=== PATIENT | female | born 1960 | race Caucasian/White ===

== ENCOUNTER 2019-07-03 11:35 | Emergency (ER) | payer BC, OTHER ==
[2019-07-03 11:46] VITALS: BP 182/109; PULSE 90; TEMP 98; BMI 34.0
[2019-07-03] MEDS ORDERED: FAMOTIDINE 20 MG/50 ML IVPB 20 MG/50 ML MG IVPB ONE ×2 (14:37→15:32)
[2019-07-03] MEDS ORDERED: SODIUM CHLORIDE 1,000 ML IV STA (14:37)
[2019-07-03] MEDS ORDERED: ONDANSETRON 4 MG/2 ML VIAL IVPUSH ONE (14:38)
[2019-07-03] MEDS ORDERED: MAG HYDROX/AL HYDROX/SIMETH 30 ML UNIT-DOSE CUP PO ONE (14:38)
[2019-07-03] MEDS ORDERED: ONDANSETRON 4 MG/2 ML VIAL ONE (15:32)
[2019-07-03] MEDS ORDERED: MAG HYDROX/AL HYDROX/SIMETH 30 ML UNIT-DOSE CUP ONE (15:32)
[2019-07-03 15:56] LABS: BASO % 0.9 % (0-2.0); EOS % 1.5 % (0-4.5); HEMATOCRIT 48.1 % (32.4-45.2); HEMOGLOBIN 15.9 GM/dL (10.7-15.3); LYMPH % 34.1 % (8-40); MCH 28.9 pg (25.7-33.7); MCHC 33.1 g/dl (32.0-36.0); MEAN CELL VOLUME 87.5 fl (80-96); MEAN PLT VOLUME 9.9 fl (7.5-11.1); MONO % 7.8 % (3.8-10.2); NEUT % 55.7 % (42.8-82.8); PLATELET COUNT 235 K/MM3 (134-434); WHITE BLOOD COUNT 7.5 K/mm3 (4.0-10.0)
[2019-07-03 16:17] LABS: ALBUMIN 3.7 g/dl (3.4-5.0); BILIRUBIN,TOTAL 0.6 mg/dL (0.2-1); BLOOD UREA NITROGEN 14.7 mg/dL (7-18); CALCIUM 9.4 mg/dL (8.5-10.1); POTASSIUM 4.5 mmol/L (3.5-5.1); TOT PROT 8.2 g/dl (6.4-8.2)
[2019-07-03 17:41] LABS: EPI CELLS 14.9 /HPF (0-5/HPF); HYALINE CASTS 12 /lpf (0-8); PH,URINE 6.5 (5.0-8.0); URINE APPEARANCE CLOUDY; URINE BILIRUBIN NEGATIVE (NEGATIVE); URINE COLOR YELLOW; URINE GLUCOSE (UA) NEGATIVE (NEGATIVE); URINE KETONE NEGATIVE (NEGATIVE); URINE LEUK ESTERASE TRACE (NEGATIVE); URINE NITRITE NEGATIVE (NEGATIVE); URINE PROTEIN NEGATIVE (NEGATIVE); URINE RBC 14 /hpf (0-4); URINE WBC 11 /hpf (0-5)
--- NOTE | 2019-07-03 17:41 | PDOC ---
History of Present Illness - General History Source: Patient Exam Limitations: No Limitations - History of Present Illness Initial Comments: 07/03/19 Patient is a 58-year-old female who presents to the ED with complaint of epigastric abdominal pain that started over the last several days. She had pain similar to this in April and then it resolved. The patient was taking omeprazole and Zantac which did help her. She denies any diarrhea but had several episodes of vomiting. She denies any fevers or chills. The patient has a history of high blood pressure and high cholesterol. She took her blood pressure medication this morning but vomited it back up. She denies any allergies to medications. She does not recall eating anything that could have made her sick. <Ana Linares - Last Filed: 07/03/19 17:45> <Jean Pierre Alonzo - Last Filed: 07/06/19 17:25> - General Chief Complaint: Pain Stated Complaint: ABD. PAIN/ VOMITING Time Seen by Provider: 07/03/19 13:54 Past History - Past Medical History COPD: No HTN: Yes - Psycho Social/Smoking Cessation Hx Smoking History: Current every day smoker Number of Cigarettes Smoked Daily: 5 Information on smoking cessation initiated: No <Ana Linares - Last Filed: 07/03/19 17:45> <Jean Pierre Alonzo - Last Filed: 07/06/19 17:25> - Past Medical History Allergies/Adverse Reactions: Allergies Allergy/AdvReac Type Severity Reaction Status Date / Time No Known Allergies Allergy Verified 07/05/19 18:02 Home Medications: Ambulatory Orders Atorvastatin Ca [Lipitor] 20 mg PO HS 07/05/19 Ergocalciferol (Vitamin D2) [Drisdol] 1,250 mcg PO DAILY 07/05/19 Famotidine [Pepcid] 40 mg PO DAILY 07/05/19 Losartan Potassium 50 mg PO DAILY 07/05/19 Omeprazole 20 mg PO DAILY 07/05/19 Review of Systems - Review of Systems Comments:: 07/03/19 17:38 - Review of Systems Able to Perform ROS?: Yes Constitutional: No: Fever, Chills, Loss of Appetite, Night Sweats, Weakness HEENTM: No: Eye Pain, Vision changes, Ear Pain, Throat Pain, Throat Swelling, Mouth Pain, Difficulty Swallowing Respiratory: No: Cough, Shortness of Breath, Wheezing, Sputum Production Cardiac (ROS): No: Chest Pain, Chest Tightness, Palpitations, Irregular Heart Beat, Edema ABD/GI: No: Diarrhea; Positive: Nausea, Vomiting, Abdominal Pain : No Dysuria, No Hematuria, No Frequency, No Urgency Musculoskeletal: No: Muscle Pain, Back Pain, Joint Pain, Muscle Weakness, Neck Pain Integumentary: No: Lesions, Rash Neurological: No: Headache, Numbness, Tingling, Weakness, Speech Difficulties <Aiayna,Ana D - Last Filed: 07/03/19 17:45> *Physical Exam - Vital Signs Last Vital Signs Temp Pulse Resp BP Pulse Ox 98 F 90 18 182/109 H 98 07/03/19 11:43 07/03/19 11:43 07/03/19 11:43 07/03/19 11:43 07/03/19 11:43 - Physical Exam 07/03/19 17:38 - Physical Exam General Appearance: Nourished, Appropriately Dressed, No Distress HEENT: EOMI, Normal Voice, No Muffled/Hoarse voice, No Nasal Congestion, No Rhinorrhea, Hearing Grossly Normal Neck: Supple, No Lymphadenopathy (R), No Lymphadenopathy (L), No Rigidity, No Decreased range of motion Respiratory/Chest: Lungs Clear, Normal Breath Sounds. No Respiratory Distress, No Accessory Muscle Use Cardiovascular: Regular Rhythm, Regular Rate, S1, S2 Gastrointestinal/Abdominal: Normal Bowel Sounds, Soft. No Guarding, No Rebound , No Rigidity; Epigastric abdominal tenderness to palpation. No right upper quadrant abdominal tenderness. No Vázquez sign. Musculoskeletal: Normal Inspection. No Decreased Range of Motion Extremity: Normal Capillary Refill, Normal Inspection Integumentary: Normal Color, Dry. No Rash Neurologic: seating captain II-XII NML intact, Fully Oriented, Alert, Normal Mood/Affect, Normal Response <Aiyana,Ana D - Last Filed: 07/03/19 17:45> - Vital Signs Last Vital Signs Temp Pulse Resp BP Pulse Ox 98 F 90 18 182/109 H 98 07/03/19 11:43 07/03/19 11:43 07/03/19 11:43 07/03/19 11:43 07/03/19 11:43 <Jean Pierre Alonzo - Last Filed: 07/06/19 17:25> ED Treatment Course - LABORATORY CBC & Chemistry Diagram: 07/03/19 15:29 07/03/19 15:29 - ADDITIONAL ORDERS Additional order review: Laboratory Results 07/03/19 07/03/19 15:29 15:29 Sodium 138 Potassium 4.5 Chloride 104 Carbon Dioxide 31 Anion Gap 4 L BUN 14.7 Creatinine 1.0 Est GFR (CKD-EPI)AfAm 72.93 Est GFR (CKD-EPI)NonAf 62.93 Random Glucose 99 Calcium 9.4 Total Bilirubin 0.6 AST 31 ALT 41 Alkaline Phosphatase 91 Total Protein 8.2 Albumin 3.7 Lipase 125 07/03/19 15:29 RBC 5.50 H MCV 87.5 MCHC 33.1 RDW 15.0 MPV 9.9 Neutrophils % 55.7 Lymphocytes % 34.1 Monocytes % 7.8 Eosinophils % 1.5 Basophils % 0.9 - Medications Given in the ED: ED Medications Discontinued Medications Generic Name Dose Route Start Last Admin Trade Name Freq PRN Reason Stop Dose Admin Al Hydroxide/Mg Hydroxide 30 ml 07/03/19 14:38 07/03/19 15:39 Mylanta Oral Suspension - PO 07/03/19 14:39 30 ml ONCE ONE Administration Famotidine/Sodium Chloride 20 mg in 50 mls @ 100 mls/hr 07/03/19 14:37 15:39 Pepcid 20 Mg Premixed Ivpb - IVPB 07/03/19 15:06 100 mls/hr ONCE ONE Administration Sodium Chloride 1,000 mls @ 1,000 mls/hr 07/03/19 14:37 07/03/19 15:39 Normal Saline - IV 07/03/19 15:36 1,000 mls/hr ASDIR STA Administration Ondansetron HCl 4 mg 07/03/19 14:38 07/03/19 15:39 Zofran Injection IVPUSH 07/03/19 14:39 4 mg ONCE ONE Administration <nAa Linares D - Last Filed: 07/03/19 17:45> - LABORATORY CBC & Chemistry Diagram: 07/03/19 15:29 07/03/19 15:29 - ADDITIONAL ORDERS Additional order review: 07/03/19 16:30 Urine Culture - Final Urine - Urine Clean Catch Normal Urogenital Isabell 07/03/19 15:29 RBC 5.50 H MCV 87.5 MCHC 33.1 RDW 15.0 MPV 9.9 Neutrophils % 55.7 Lymphocytes % 34.1 Monocytes % 7.8 Eosinophils % 1.5 Basophils % 0.9 - Medications Given in the ED: ED Medications Discontinued Medications Generic Name Dose Route Start Last Admin Trade Name Donaldq PRN Reason Stop Dose Admin Al Hydroxide/Mg Hydroxide 30 ml 07/03/19 14:38 07/03/19 15:39 Mylanta Oral Suspension - PO 07/03/19 14:39 30 ml ONCE ONE Administration Famotidine/Sodium Chloride 20 mg in 50 mls @ 100 mls/hr 07/03/19 14:37 15:39 Pepcid 20 Mg Premixed Ivpb - IVPB 07/03/19 15:06 100 mls/hr ONCE ONE Administration Sodium Chloride 1,000 mls @ 1,000 mls/hr 07/03/19 14:37 07/03/19 15:39 Normal Saline - IV 07/03/19 15:36 1,000 mls/hr ASDIR STA Administration Ondansetron HCl 4 mg 07/03/19 14:38 07/03/19 15:39 Zofran Injection IVPUSH 07/03/19 14:39 4 mg ONCE ONE Administration <Jean Pierre Alonzo - Last Filed: 07/06/19 17:25> Medical Decision Making - Medical Decision Making 07/03/19 16:15 Assessment: Patient is a 58-year-old female with epigastric abdominal pain and vomiting. She has a history of hypertension with elevated blood pressures in the ED. She did vomit her hypertensive medications. Plan: -Labs ordered -Fluids ordered -GI cocktail ordered -Will reassess 07/03/19 17:46 The patient is doing well and states she feels hungry. She has been made aware that her labs are within normal limits. She has a urine infection which we will treat with keflex. She should follow up with her primary doctor within 2 days for repeat evaluation. She understands and agrees with this treatment plan and she is stable for discharge. <Ana Linares - Last Filed: 07/03/19 17:45> - Medical Decision Making The patient was seen and evaluated in conjunction with KLAUDIA linares under my direct supervision, ancillary studies were reviewed. I agree with the plan as outlined by KLAUDIA Steele. <Jean Pierre Alonzo - Last Filed: 07/06/19 17:25> Discharge - Discharge Information Problems reviewed: Yes <Ana Linares - Last Filed: 07/03/19 17:45> <Jean Pierre Alonzo - Last Filed: 07/06/19 17:25> - Discharge Information Clinical Impression/Diagnosis: Epigastric abdominal pain, Acute cystitis without hematuria Disposition: HOME - Patient Discharge Instructions Patient Printed Discharge Instructions: [place] Diet, DI for Urinary Tract Infection (UTI), DI for Abdominal Pain-Adult Additional Instructions: Get plenty of rest and drink plenty of fluids. Eat a bland diet and avoid fried , greasy, fatty, acidic foods. Follow-up with your primary doctor within 1 to 2 days for repeat evaluation. Print Language: UPPER SORBIAN
[2019-07-03] MEDS ORDERED: CEPHALEXIN MONOHYDRATE 500 MG CAPSULE (UD) PO ONE (17:53)
[2019-07-03] MEDS ORDERED: CEPHALEXIN MONOHYDRATE 500 MG CAPSULE (UD) ONE (17:55)
== END 2019-07-03 18:13 | disposition home or self-care (01) ==
LOC: JER 11:35
PROC: 3E033GC Introduction of Other Therapeutic Substance into Peripheral Vein, Percutaneous Approach (ICD-10-PCS; principal; 2019-07-03)
PROC: 3E033GC Introduction of Other Therapeutic Substance into Peripheral Vein, Percutaneous Approach (ICD-10-PCS; 2019-07-03)
DX: N30.00 Acute cystitis without hematuria (principal); R10.13 Epigastric pain; I10 Essential (primary) hypertension; E78.00 Pure hypercholesterolemia, unspecified
CPT/HCPCS: 36415; 80053; 81003; 83690; 85025; 87086; 99284-25; J7030

== ENCOUNTER 2019-07-05 17:54 | Emergency (ER) | payer BC ==
[2019-07-05 18:02] VITALS: BP 161/99; TEMP 98.5; BMI 28.8
[2019-07-05] MEDS ORDERED: ONDANSETRON 4 MG/2 ML VIAL IVPUSH ONE (18:39)
[2019-07-05] MEDS ORDERED: SODIUM CHLORIDE 1,000 ML IV STA (18:39)
[2019-07-05] MEDS ORDERED: FAMOTIDINE 20 MG/50 ML IVPB 20 MG/50 ML MG IVPB ONE ×2 (18:39→18:51)
--- NOTE | 2019-07-05 18:49 | PDOC ---
History of Present Illness - General Chief Complaint: Pain Stated Complaint: ABD PAIN/VOMITING Time Seen by Provider: 07/05/19 18:23 History Source: Patient Exam Limitations: No Limitations Past History - Past Medical History Allergies/Adverse Reactions: Allergies Allergy/AdvReac Type Severity Reaction Status Date / Time No Known Allergies Allergy Verified 07/05/19 18:02 Home Medications: Ambulatory Orders Atorvastatin Ca [Lipitor] 20 mg PO HS 07/05/19 Ergocalciferol (Vitamin D2) [Drisdol] 1,250 mcg PO DAILY 07/05/19 Famotidine [Pepcid] 40 mg PO DAILY 07/05/19 Losartan Potassium 50 mg PO DAILY 07/05/19 Omeprazole 20 mg PO DAILY 07/05/19 COPD: No HTN: Yes - Psycho Social/Smoking Cessation Hx Smoking History: Never smoked Number of Cigarettes Smoked Daily: 5 Information on smoking cessation initiated: No Hx Alcohol Use: No Drug/Substance Use Hx: No *Physical Exam - Vital Signs Last Vital Signs Temp Pulse Resp BP Pulse Ox 98.5 F 90 19 161/99 99 07/05/19 18:00 07/05/19 18:00 07/05/19 18:00 07/05/19 18:00 07/05/19 18:00 - Physical Exam General Appearance: No: Apparent Distress Respiratory/Chest: positive: Lungs Clear, Normal Breath Sounds. negative: Respiratory Distress Cardiovascular: positive: Regular Rhythm, Regular Rate, S1, S2. negative: Murmur Gastrointestinal/Abdominal: positive: Tender (mild along epigastric region), Soft. negative: Distended, Guarding Musculoskeletal: negative: CVA Tenderness Neurologic: positive: Alert ED Treatment Course - LABORATORY CBC & Chemistry Diagram: 07/05/19 19:00 07/05/19 19:00 - RADIOLOGY Radiology Studies Ordered: Category Date Time Status ABDOMEN & PELVIS CT WITH CONTR [CT] Stat CT Scan 07/05/19 18:40 Ordered Medical Decision Making - Medical Decision Making 58 y/o F hx of HTN presents with epigastric burning x 4 days along with NBNB emesis. Was seen 2 days ago for similar complaints, had unremarkable labs, dx with UTI and sent with rx for Keflex. Epigastric pain is worse with food intake. Is using Maalox at home without relief of sxs. Also tried Zofran but has not helped with nausea. States she was feeling better 2 days ago after meds received and was fine yesterday as well but symptoms returned today. Has had this problem in the past as well and was seen in [place]; was on Omeprazole in the past, but it did not help. Denies fever, sob, cp, diarrhea, urinary complaints. Surgical hx: L oopherectomy 13 years ago, Likely gastritis Patient is visiting from [place] and goes back in 4 days; is pending to see GI there D/W Dr. Wilkes - recommends repeat labs; also flat and upright abdominal xray to r/o SBO (suspicion low) Will give IVF, Zofran, Pepcid and reassess 07/05/19 18:48 Labs reviewed and unremarkable other than K 5.4 Kidney function is normal EKG shows NSR at 61 bpm, no peaked T waves Flat and upright xray shows no air fluid levels; some stool noted Patient feeling much better Stable for dc Will f/u with GI 07/05/19 20:50 Discharge - Discharge Information Problems reviewed: Yes Clinical Impression/Diagnosis: Gastritis Qualifiers: Gastritis type: unspecified gastritis Chronicity: unspecified Gastritis bleeding: without bleeding Qualified Code(s): K29.70 - Gastritis, unspecified, without bleeding Condition: Improved Disposition: HOME - Admission No - Additional Discharge Information Prescription Drug Monitoring Program (I-STOP) results: I-STOP not reviewed - Follow up/Referral - Patient Discharge Instructions Patient Printed Discharge Instructions: DI for Gastritis Additional Instructions: Thank you for choosing [facility]. It was a pleasure taking care of you. Recommend taking Pepcid 20 mg daily for your symptoms Please be sure to follow-up with GI for further care You were referred to one Return to the Emergency Department if your symptoms worsen or persist or have other concerning symptoms. Stephanie por elegir el [facility]. Fue un placer cuidar de ti. Recomiende orsa Pepcid 20 mg al da para stephanie sntomas Asegrese de hacer un seguimiento con GI para recibir ms atencin. Te remitieron a massiel Regrese al departamento de emergencias si stephanie sntomas empeoran o persisten o si tiene otros sntomas preocupantes. Print Language: SOUTH AFRICAN - Post Discharge Activity
[2019-07-05] MEDS ORDERED: ONDANSETRON 4 MG/2 ML VIAL ONE (18:50)
[2019-07-05 19:44] LABS: BASO % 0.9 % (0-2.0); EOS % 1.4 % (0-4.5); HEMATOCRIT 48.6 % (32.4-45.2); HEMOGLOBIN 16.3 GM/dL (10.7-15.3); LYMPH % 35.9 % (8-40); MCH 29.2 pg (25.7-33.7); MCHC 33.5 g/dl (32.0-36.0); MEAN CELL VOLUME 87.3 fl (80-96); MEAN PLT VOLUME 10.1 fl (7.5-11.1); MONO % 7.6 % (3.8-10.2); NEUT % 54.2 % (42.8-82.8); PLATELET COUNT 240 K/MM3 (134-434); RBC 5.57 M/mm3 (3.60-5.2); RDW 14.9 % (11.6-15.6); WHITE BLOOD COUNT 7.1 K/mm3 (4.0-10.0)
--- NOTE | 2019-07-05 19:44 | PDOC ---
*Physical Exam - Vital Signs Last Vital Signs Temp Pulse Resp BP Pulse Ox 98.5 F 80 18 161/99 98 07/05/19 18:00 07/05/19 19:31 07/05/19 19:31 07/05/19 18:00 07/05/19 19:31 ED Treatment Course - LABORATORY CBC & Chemistry Diagram: 07/05/19 19:00 07/05/19 19:00 - Medications Given in the ED: ED Medications Discontinued Medications Generic Name Dose Route Start Last Admin Trade Name Becka PRN Reason Stop Dose Admin Famotidine/Sodium Chloride 20 mg in 50 mls @ 100 mls/hr 07/05/19 18:39 19:05 Pepcid 20 Mg Premixed Ivpb - IVPB 07/05/19 19:08 100 mls/hr ONCE ONE Administration Sodium Chloride 1,000 mls @ 1,000 mls/hr 07/05/19 18:39 07/05/19 19:05 Normal Saline - IV 07/05/19 19:38 1,000 mls/hr ASDIR STA Administration Ondansetron HCl 4 mg 07/05/19 18:39 07/05/19 19:05 Zofran Injection IVPUSH 07/05/19 18:40 4 mg ONCE ONE Administration Medical Decision Making - Medical Decision Making 07/05/19 19:41 58 yo female w/ epigastric burning /pain n/v x 3 Abd soft NTND States it feels like her GERD Plan for CE /Lipase/CXR Agree w/ PA plan The patient was seen evaluated and discussed w/ the provider. I have reviewed the patients chart and agree w/ plan of care . Discharge - Discharge Information Problems reviewed: Yes Clinical Impression/Diagnosis: Epigastric abdominal pain - Follow up/Referral - Patient Discharge Instructions - Post Discharge Activity
[2019-07-05 20:12] LABS: LIPASE 97 U/L (73-393)
[2019-07-05 20:15] LABS: ALBUMIN 3.7 g/dl (3.4-5.0); BILIRUBIN,TOTAL 0.6 mg/dL (0.2-1); BLOOD UREA NITROGEN 11.5 mg/dL (7-18); CALCIUM 9.2 mg/dL (8.5-10.1); POTASSIUM 5.4 mmol/L (3.5-5.1); TOT PROT 8.2 g/dl (6.4-8.2)
[2019-07-05 21:54] VITALS: PULSE 86
--- NOTE | 2019-07-06 11:53 | EKG ---
Test Reason : Blood Pressure : / mmHG Vent. Rate : 061 BPM Atrial Rate : 061 BPM P-R Int : 166 ms QRS Dur : 086 ms QT Int : 412 ms P-R-T Axes : 020 -01 021 degrees QTc Int : 414 ms NORMAL SINUS RHYTHM NORMAL ECG NO PREVIOUS ECGS AVAILABLE Confirmed by RANDEE LARSON MD ([id number]) on 07/06/2019 11:53:02 AM Referred By: Confirmed By:RANDEE LARSON MD
== END 2019-07-05 21:54 | disposition home or self-care (01) ==
LOC: JER 17:54
PROC: 3E033GC Introduction of Other Therapeutic Substance into Peripheral Vein, Percutaneous Approach (ICD-10-PCS; principal; 2019-07-05)
DX: K29.70 Gastritis, unspecified, without bleeding (principal); I10 Essential (primary) hypertension
CPT/HCPCS: 36415; 74019-TC-FY; 80053; 83690; 84484; 85025; 93005; 93010; 99285-25; J7030